=== PATIENT | female | born 1980 | race Caucasian/White ===

== ENCOUNTER 2017-11-18 22:46 | Inpatient (IN) | payer BC ==
[2017-11-18] MEDS: ONDANSETRON 4 MG INJ IV (23:31)
[2017-11-18] MEDS: CEFTRIAXONE 1 GM/50 ML (PMX) 50 ML IVPB (23:31)
[2017-11-18] MEDS: DEXTROSE 5%-0.9% NACL 1,000 ML IV (23:32)
[2017-11-18] MEDS: morphine 2 MG INJ IV (23:34)
[2017-11-19] MEDS: PANTOPRAZOLE 40 MG INJ IV (05:35)
[2017-11-19 05:38] LABS: ADD MAN DIFF? NO
[2017-11-19 05:44] LABS: BASOPHILS % 0.2 % (0.0-2.0); EOSINOPHILS # 0.2 10^3/ul (0.0-0.5); HEMATOCRIT 35.8 % (37.0-47.0); HEMOGLOBIN 12.9 g/dl (12.0-16.0); LYMPHOCYTES # 1.2 10^3/ul (0.8-2.9); LYMPHOCYTES % 13.8 % (15.0-51.0); MEAN CORPUSCULAR HEMOGLOBIN 31.3 pg (29.0-33.0); MEAN CORPUSCULAR VOLUME 86.9 fl (82.0-101.0); MEAN PLATELET VOLUME 10.1 fl (7.4-10.4); MONOCYTE # 0.5 10^3/ul (0.3-0.9); MONOCYTES % 5.1 % (0.0-11.0); NEUTROPHIL # 6.9 10^3/ul (1.6-7.5); NEUTROPHILS % 78.7 % (39.0-77.0); PLATELET COUNT 288 10^3/UL (140-415); RED BLOOD COUNT 4.12 10^6/ul (4.20-5.40); RED CELL DISTRIBUTION WIDTH 12.1 % (11.5-14.5)
[2017-11-19 05:44] LABS: WHITE BLOOD COUNT 8.8 10^3/ul (4.8-10.8)
[2017-11-19 06:10] LABS: ALANINE AMINOTRANSFERASE 67 IU/L (13-69); ALBUMIN/GLOBULIN RATIO 1.33; ALKALINE PHOSPHATASE 79 IU/L (42-121); ANION GAP 9 (8-16); ASPARTATE AMINO TRANSFERASE 69 IU/L (15-46); BILIRUBIN,INDIRECT 0.9 mg/dl (0-1.1); BILIRUBIN,TOTAL 0.9 mg/dl (0.2-1.3); BLOOD UREA NITROGEN 6 mg/dl (7-20); CALCIUM 8.5 mg/dl (8.4-10.2); CARBON DIOXIDE 29 mmol/L (21-31); CHLORIDE 103 mmol/L (97-110); CREATININE 0.62 mg/dl (0.44-1.00); GLUCOSE 110 mg/dl (70-220); SODIUM 138 mmol/L (135-144)
[2017-11-19] MEDS: morphine 2 MG INJ IV ×2 (10:53→17:53)
[2017-11-19] MEDS: POTASSIUM CHLORIDE 100 ML IVPB (12:58)
[2017-11-19] MEDS: ACETAMINOPHEN 325 MG TAB PO (13:21)
[2017-11-19] MEDS: POTASSIUM CHLORIDE (SR) 20 MEQ TAB PO (14:29)
[2017-11-19] MEDS: metroNIDAZOLE 500 MG/NS (PMX) 100 ML IVPB ×2 (14:29→21:01)
[2017-11-19 14:59] LABS: INR 1.01; PROTIME 13.4 Sec (11.9-14.9)
[2017-11-19] MEDS: DEXTROSE 5%-0.9% NACL 1,000 ML IV (19:00)
[2017-11-19] MEDS: CEFTRIAXONE 1 GM/50 ML (PMX) 50 ML IVPB (22:08)
[2017-11-20] MEDS: morphine 2 MG INJ IV ×2 (03:04→18:21)
[2017-11-20] MEDS: DEXTROSE 5%-0.9% NACL 1,000 ML IV ×2 (03:05→14:33)
[2017-11-20] MEDS: PANTOPRAZOLE 40 MG INJ IV (05:21)
[2017-11-20] MEDS: metroNIDAZOLE 500 MG/NS (PMX) 100 ML IVPB ×3 (05:21→21:44)
[2017-11-20] MEDS: ACETAMINOPHEN 325 MG TAB PO (05:30)
[2017-11-20 07:09] LABS: ALANINE AMINOTRANSFERASE 52 IU/L (13-69); ALBUMIN 3.7 g/dl (3.3-4.9); ALBUMIN/GLOBULIN RATIO 1.15; ALKALINE PHOSPHATASE 74 IU/L (42-121); ANION GAP 10 (8-16); ASPARTATE AMINO TRANSFERASE 41 IU/L (15-46); BILIRUBIN,INDIRECT 0.6 mg/dl (0-1.1); BILIRUBIN,TOTAL 0.6 mg/dl (0.2-1.3); BLOOD UREA NITROGEN 4 mg/dl (7-20); CALCIUM 8.6 mg/dl (8.4-10.2); CARBON DIOXIDE 29 mmol/L (21-31); CHLORIDE 102 mmol/L (97-110); CREATININE 0.64 mg/dl (0.44-1.00); GLUCOSE 101 mg/dl (70-220); POTASSIUM 3.3 mmol/L (3.5-5.1); SODIUM 138 mmol/L (135-144); TOTAL PROTEIN 6.9 g/dl (6.1-8.1)
[2017-11-20] MEDS ORDERED: BUPIVACAINE 0.25% (MPF) 30 ML INJ (07:18)
[2017-11-20] MEDS ORDERED: LIDOCAINE 1%/EPI 30 ML INJ (07:18)
[2017-11-20] MEDS ORDERED: FAMOTIDINE 20 MG INJ (07:25)
[2017-11-20] MEDS ORDERED: PROPOFOL 20 ML (07:25)
[2017-11-20] MEDS ORDERED: ROCURONIUM 50 MG INJ (07:25)
[2017-11-20] MEDS ORDERED: FENTAnyl 50 MCG/ML VIAL (07:25)
[2017-11-20] MEDS ORDERED: LIDOCAINE 2% (SDV) 5 ML INJ (07:25)
[2017-11-20] MEDS ORDERED: MIDAZOLAM 1 MG/ML 2 ML INJ (07:25)
[2017-11-20] MEDS ORDERED: ONDANSETRON 4 MG INJ (07:25)
[2017-11-20] MEDS ORDERED: SUCCINYLCHOLINE CHLORIDE 100 MG/5 ML SYG IV (07:25)
[2017-11-20] MEDS ORDERED: SUGAMMADEX SODIUM 200 MG/2 ML VIAL IV (07:25)
[2017-11-20] MEDS ORDERED: DEXAMETHASONE 4 MG/ML 1 ML INJ (07:25)
[2017-11-20] MEDS ORDERED: FENTAnyl 50 MCG/ML VIAL IV ×2 (08:00)
[2017-11-20] MEDS ORDERED: HYDROmorphONE 1 MG/5 ML IV SYRINGE IV ×2 (08:00)
[2017-11-20] MEDS ORDERED: MEPERIDINE 25 MG INJ IV (08:00)
[2017-11-20] MEDS ORDERED: MIDAZOLAM 1 MG/ML 2 ML INJ IV (08:00)
[2017-11-20] MEDS ORDERED: ONDANSETRON 4 MG INJ IV (08:00)
[2017-11-20] MEDS ORDERED: PHENYLephrine (100 MCG/ML) 5ML SYG (08:01)
[2017-11-20] MEDS ORDERED: morphine 10 MG INJ (08:29)
[2017-11-20] MEDS ORDERED: POTASSIUM CHLORIDE 50 ML (09:19)
[2017-11-20] MEDS ORDERED: METOCLOPRAMIDE 10 MG INJ (10:13)
[2017-11-20] MEDS: POTASSIUM CHLORIDE (SR) 20 MEQ TAB PO (12:26)
[2017-11-20] MEDS: morphine LIQ (10 MG/5 ML) CUP PO (22:14)
[2017-11-20] MEDS: CEFTRIAXONE 1 GM/50 ML (PMX) 50 ML IVPB (23:50)
[2017-11-21] MEDS: morphine LIQ (10 MG/5 ML) CUP PO ×2 (03:22→09:23)
[2017-11-21 05:30] LABS: ADD MAN DIFF? NO
[2017-11-21 05:33] LABS: BASOPHILS % 0.3 % (0.0-2.0); EOSINOPHILS # 0.1 10^3/ul (0.0-0.5); HEMATOCRIT 30.8 % (37.0-47.0); LYMPHOCYTES # 1.4 10^3/ul (0.8-2.9); MEAN CORPUSCULAR HEMOGLOBIN 31.6 pg (29.0-33.0); MEAN CORPUSCULAR HGB CONC 35.7 g/dl (32.0-37.0); MEAN CORPUSCULAR VOLUME 88.5 fl (82.0-101.0); MEAN PLATELET VOLUME 9.9 fl (7.4-10.4); MONOCYTE # 0.6 10^3/ul (0.3-0.9); MONOCYTES % 6.3 % (0.0-11.0); NEUTROPHIL # 6.8 10^3/ul (1.6-7.5); NEUTROPHILS % 76.2 % (39.0-77.0); PLATELET COUNT 256 10^3/UL (140-415); RED BLOOD COUNT 3.48 10^6/ul (4.20-5.40); RED CELL DISTRIBUTION WIDTH 12.2 % (11.5-14.5)
[2017-11-21 05:33] LABS: WHITE BLOOD COUNT 8.9 10^3/ul (4.8-10.8)
[2017-11-21] MEDS: PANTOPRAZOLE 40 MG INJ IV (06:08)
[2017-11-21] MEDS: metroNIDAZOLE 500 MG/NS (PMX) 100 ML IVPB ×3 (06:09→21:41)
[2017-11-21 06:10] LABS: PHOSPHORUS 3.6 mg/dl (2.5-4.9)
[2017-11-21 06:10] LABS: MAGNESIUM 1.8 mg/dl (1.7-2.5)
[2017-11-21 06:16] LABS: ALANINE AMINOTRANSFERASE 98 IU/L (13-69); ALBUMIN 3.3 g/dl (3.3-4.9); ALBUMIN/GLOBULIN RATIO 1.22; ALKALINE PHOSPHATASE 76 IU/L (42-121); ANION GAP 9 (8-16); ASPARTATE AMINO TRANSFERASE 87 IU/L (15-46); BILIRUBIN,INDIRECT 0.4 mg/dl (0-1.1); BILIRUBIN,TOTAL 0.4 mg/dl (0.2-1.3); BLOOD UREA NITROGEN 6 mg/dl (7-20); CALCIUM 8.3 mg/dl (8.4-10.2); CARBON DIOXIDE 31 mmol/L (21-31); CHLORIDE 103 mmol/L (97-110); CREATININE 0.67 mg/dl (0.44-1.00); GLUCOSE 102 mg/dl (70-220); SODIUM 140 mmol/L (135-144)
[2017-11-21] MEDS: POTASSIUM CHLORIDE (SR) 20 MEQ TAB PO ×4 (11:53→19:51)
[2017-11-21 15:11] LABS: POTASSIUM 3.2 mmol/L (3.5-5.1)
[2017-11-21] MEDS: HYDROCODONE/APAP (5/325) TAB PO (19:51)
[2017-11-21] MEDS: ACETAMINOPHEN 325 MG TAB PO (21:49)
[2017-11-21] MEDS: CEFTRIAXONE 1 GM/50 ML (PMX) 50 ML IVPB (22:52)
[2017-11-22] MEDS: HYDROCODONE/APAP (5/325) TAB PO ×3 (01:24→20:50)
[2017-11-22] MEDS: PANTOPRAZOLE 40 MG INJ IV (06:14)
[2017-11-22] MEDS: metroNIDAZOLE 500 MG/NS (PMX) 100 ML IVPB ×3 (06:14→21:24)
[2017-11-22 06:18] LABS: ALANINE AMINOTRANSFERASE 186 IU/L (13-69); ALBUMIN/GLOBULIN RATIO 1.07; ALKALINE PHOSPHATASE 105 IU/L (42-121); ANION GAP 9 (8-16); ASPARTATE AMINO TRANSFERASE 119 IU/L (15-46); BILIRUBIN,INDIRECT 0.3 mg/dl (0-1.1); BILIRUBIN,TOTAL 0.3 mg/dl (0.2-1.3); BLOOD UREA NITROGEN 10 mg/dl (7-20); CALCIUM 8.6 mg/dl (8.4-10.2); CARBON DIOXIDE 30 mmol/L (21-31); CHLORIDE 107 mmol/L (97-110); CREATININE 0.61 mg/dl (0.44-1.00); GLUCOSE 91 mg/dl (70-220); POTASSIUM 3.9 mmol/L (3.5-5.1); SODIUM 142 mmol/L (135-144); TOTAL PROTEIN 5.8 g/dl (6.1-8.1)
[2017-11-22] MEDS: CEFTRIAXONE 1 GM/50 ML (PMX) 50 ML IVPB (22:55)
[2017-11-23] MEDS: HYDROCODONE/APAP (5/325) TAB PO (03:53)
[2017-11-23] MEDS: PANTOPRAZOLE (EC) 40 MG TAB PO (05:22)
[2017-11-23] MEDS: metroNIDAZOLE 500 MG/NS (PMX) 100 ML IVPB (06:00)
[2017-11-23 06:16] LABS: ALANINE AMINOTRANSFERASE 123 IU/L (13-69); ALBUMIN/GLOBULIN RATIO 1.11; ALKALINE PHOSPHATASE 85 IU/L (42-121); ANION GAP 9 (8-16); ASPARTATE AMINO TRANSFERASE 41 IU/L (15-46); BILIRUBIN,INDIRECT 0.3 mg/dl (0-1.1); BILIRUBIN,TOTAL 0.3 mg/dl (0.2-1.3); BLOOD UREA NITROGEN 11 mg/dl (7-20); CALCIUM 8.9 mg/dl (8.4-10.2); CARBON DIOXIDE 32 mmol/L (21-31); CHLORIDE 101 mmol/L (97-110); CREATININE 0.66 mg/dl (0.44-1.00); GLUCOSE 104 mg/dl (70-220); POTASSIUM 3.3 mmol/L (3.5-5.1); SODIUM 139 mmol/L (135-144); TOTAL PROTEIN 5.7 g/dl (6.1-8.1)
[2017-11-23] MEDS: ACETAMINOPHEN 325 MG TAB PO (10:27)
[2017-11-23] MEDS: POTASSIUM CHLORIDE 20 MEQ POWDER FOR ORAL SOLN PO (11:26)
== END 2017-11-23 12:35 | disposition home or self-care (01) | DRG 419 ==
LOC: MS2 22:46
PROC: 0FT44ZZ Resection of Gallbladder, Percutaneous Endoscopic Approach (ICD-10-PCS; principal; 2017-11-20 07:30)
DX: K80.12 Calculus of gallbladder with acute and chronic cholecystitis without obstruction (principal); E87.6 Hypokalemia; I10 Essential (primary) hypertension; E66.9 Obesity, unspecified; Z68.30 Body mass index [BMI] 30.0-30.9, adult; M54.2 Cervicalgia; M79.1 Myalgia
CPT/HCPCS: 71045; 72050; 76705; 80053; 83735; 84100; 84132; 85025; 85610; 88304; 93005

== ENCOUNTER 2018-01-15 07:16 | Emergency (ER) | payer BC ==
[2018-01-15] MEDS: morphine 4 MG/ML VIAL IV (07:44)
[2018-01-15] MEDS: ONDANSETRON 4 MG INJ IV (07:44)
[2018-01-15] MEDS: SOD CHLORIDE 0.9% 1,000 ML IV (07:44)
[2018-01-15] MEDS ORDERED: IOHEXOL 14.3 MG(I)/ML (ADULT) BTL PO (08:00)
[2018-01-15 08:02] LABS: ADD MAN DIFF? NO
[2018-01-15 08:07] LABS: WHITE BLOOD COUNT 16.5 10^3/ul (4.8-10.8)
[2018-01-15 08:07] LABS: ABNORMAL IP MESSAGE 1; BASOPHILS % 0.2 % (0.0-2.0); HEMATOCRIT 35.7 % (37.0-47.0); HEMOGLOBIN 12.4 g/dl (12.0-16.0); LYMPHOCYTES # 0.5 10^3/ul (0.8-2.9); MEAN CORPUSCULAR HEMOGLOBIN 30.9 pg (29.0-33.0); MEAN CORPUSCULAR HGB CONC 34.7 g/dl (32.0-37.0); MEAN PLATELET VOLUME 10.1 fl (7.4-10.4); MONOCYTE # 0.2 10^3/ul (0.3-0.9); MONOCYTES % 1.1 % (0.0-11.0); NEUTROPHIL # 15.7 10^3/ul (1.6-7.5); NEUTROPHILS % 95.2 % (39.0-77.0); PLATELET COUNT 285 10^3/UL (140-415); RED BLOOD COUNT 4.01 10^6/ul (4.20-5.40); RED CELL DISTRIBUTION WIDTH 11.9 % (11.5-14.5)
[2018-01-15 08:11] LABS: POSITIVE DIFF @See below
[2018-01-15 08:26] LABS: ALANINE AMINOTRANSFERASE 24 IU/L (13-69); ALBUMIN 4.1 g/dl (3.3-4.9); ALBUMIN/GLOBULIN RATIO 1.07; ALKALINE PHOSPHATASE 79 IU/L (42-121); ANION GAP 14 (8-16); ASPARTATE AMINO TRANSFERASE 22 IU/L (15-46); BILIRUBIN,INDIRECT 1.6 mg/dl (0-1.1); BILIRUBIN,TOTAL 1.6 mg/dl (0.2-1.3); BLOOD UREA NITROGEN 12 mg/dl (7-20); CALCIUM 9.5 mg/dl (8.4-10.2); CARBON DIOXIDE 29 mmol/L (21-31); CHLORIDE 96 mmol/L (97-110); CREATININE 0.84 mg/dl (0.44-1.00); GLUCOSE 110 mg/dl (70-220); LIPASE 22 U/L (23-300); POTASSIUM 3.4 mmol/L (3.5-5.1); SODIUM 136 mmol/L (135-144); TOTAL PROTEIN 7.9 g/dl (6.1-8.1)
[2018-01-15] MEDS: IOHEXOL 300MG/ML 150 ML BTL (09:22)
[2018-01-15] MEDS: SOD CHLORIDE 0.9% 100 ML (09:22)
[2018-01-15 10:36] LABS: ADD UMIC YES; UR ASCORBIC ACID NEGATIVE (NEGATIVE); UR BILIRUBIN (Dip) NEGATIVE (NEGATIVE); UR BLOOD (Dip) 3+ mg/dL (NEGATIVE); UR CLARITY CLEAR (CLEAR); UR COLOR YELLOW (YELLOW); UR GLUCOSE (Dip) NEGATIVE (NEGATIVE); UR KETONES (Dip) NEGATIVE (NEGATIVE); UR LEUKOCYTE ESTERASE (Dip) TRACE Leu/ul (NEGATIVE); UR MUCUS FEW /HPF (NONE SEEN); UR NITRITE (Dip) NEGATIVE (NEGATIVE); UR RBC 4 /HPF (0-5); UR SPECIFIC GRAVITY (Dip) > 1.060 (1.003-1.030); UR SQUAMOUS EPITHELIAL CELL FEW /HPF (FEW); UR TOTAL PROTEIN (Dip) NEGATIVE (NEGATIVE); UR UROBILINOGEN (Dip) 1+ mg/dL (NEGATIVE); UR WBC 6 /HPF (0-5)
[2018-01-15] MEDS: CIPROFLOXACIN 500 MG TAB PO (11:04)
[2018-01-15] MEDS: ONDANSETRON (ODT) 4 MG TAB ODT (11:09)
[2018-01-15] MEDS: metroNIDAZOLE 500 MG TAB PO (11:09)
[2018-01-15] MEDS: HYDROCODONE/APAP (5/325) TAB PO (11:09)
== END 2018-01-15 12:27 | disposition home or self-care (01) ==
LOC: FTE 12:27
DX: K52.9 Noninfective gastroenteritis and colitis, unspecified (principal)
CPT/HCPCS: 36415; 74177; 80053; 81001; 83690; 84703; 85025; 96361; 96374; 96375; 99285-25

== ENCOUNTER 2018-01-16 10:09 | Emergency (ER) | payer BC ==
[2018-01-16] MEDS ORDERED: KETOROLAC 30 MG INJ IM (11:00)
[2018-01-16] MEDS: KETOROLAC 30 MG INJ IM (11:16)
[2018-01-16] MEDS: ONDANSETRON (ODT) 4 MG TAB ODT (11:16)
== END 2018-01-16 11:26 | disposition home or self-care (01) ==
LOC: E/R 10:09
DX: N30.90 Cystitis, unspecified without hematuria (principal)
CPT/HCPCS: 96372; 99284-25